=== PATIENT | male | born 1960 | race Asian ===

== ENCOUNTER 2018-11-05 21:40 | Emergency (ER) | payer OTHER ==
[~2018-11-05] VITALS: Ht 190.5 cm; Wt 145.2 kg
[2018-11-05] MEDS ORDERED: AMLODIPINE BESYLATE PO (22:02)
[2018-11-05] MEDS ORDERED: CLONIDINE0.3 MG PO (22:03)
[2018-11-05] MEDS ORDERED: FURO40TA93 PO (22:03)
[2018-11-05] MEDS ORDERED: CARV12.5 PO (22:03)
[2018-11-05] MEDS ORDERED: GRALISE600 MG PO (22:04)
[2018-11-05] MEDS ORDERED: TESTOST CYP200 MG/ML IM (22:05)
[2018-11-05 22:24] LABS: PLATELET COUNT 166 K/uL (142-355)
[2018-11-05 22:34] LABS: POTASSIUM 2.9 mmol/L (3.6-5.2)
[2018-11-06 01:10] VITALS: TEMP 97.7
[2018-11-06 02:35] VITALS: BP 189/108
== END 2018-11-06 02:41 | disposition home or self-care (01) ==
LOC: ED 21:40
PROVIDERS: Internal Medicine
DX: J18.8 Other pneumonia, unspecified organism (principal); E87.6 Hypokalemia; R60.0 Localized edema; G62.89 Other specified polyneuropathies
CPT/HCPCS: 36415; 80053; 81000; 82550; 82553; 84484; 85027; 85379; 93005; 96360; 96365; 96366; 99284; J0696

== ENCOUNTER 2018-12-12 11:14 | Outpatient (CLI) | payer OTHER ==
[~2018-12-12 11:14] MED LIST: AMLODIPINE BESYLATE PO; CARV12.5 PO; CLONIDINE0.3 MG PO; FURO40TA93 PO; GRALISE600 MG PO; TESTOST CYP200 MG/ML IM
[2018-12-12 11:47] LABS: PLATELET COUNT 159 K/uL (142-355)
[2018-12-12 11:59] LABS: POTASSIUM 3.9 mmol/L (3.6-5.2)
== END 2018-12-12 23:35 | disposition home or self-care (01) ==
LOC: LABW 11:14
PROVIDERS: Internal Medicine
DX: I10 Essential (primary) hypertension (principal); R60.9 Edema, unspecified; Z79.899 Other long term (current) drug therapy
CPT/HCPCS: 36415; 80053; 81000; 82330; 82570; 83036; 83735; 84100; 84155; 85027

== ENCOUNTER 2019-07-02 09:04 | Outpatient (CLI) | payer OTHER ==
[2019-07-02 09:42] LABS: PLATELET COUNT 132 K/uL (142-355)
[2019-07-02 10:03] LABS: POTASSIUM 3.6 mmol/L (3.6-5.2)
== END 2019-07-02 20:15 | disposition home or self-care (01) ==
LOC: LABW 09:04
PROVIDERS: Internal Medicine
DX: I10 Essential (primary) hypertension (principal); R80.8 Other proteinuria
CPT/HCPCS: 36415; 80053; 82043; 82570; 84155; 84165; 85027

== ENCOUNTER 2019-08-26 10:17 | Outpatient (CLI) | payer OTHER ==
[2019-08-26 10:38] LABS: PLATELET COUNT 128 K/uL (142-355)
[2019-08-26 10:42] LABS: POTASSIUM 4.2 mmol/L (3.6-5.2)
== END 2019-08-26 19:14 | disposition home or self-care (01) ==
LOC: LABW 10:17
PROVIDERS: Internal Medicine
DX: I10 Essential (primary) hypertension (principal)
CPT/HCPCS: 36415; 80053; 85027

== ENCOUNTER 2019-10-28 10:44 | Outpatient (CLI) | payer OTHER ==
[2019-10-28 11:04] LABS: PLATELET COUNT 184 K/uL (142-355)
[2019-10-28 11:15] LABS: POTASSIUM 3.1 mmol/L (3.6-5.2)
== END 2019-10-28 23:53 | disposition home or self-care (01) ==
LOC: LABW 10:44
PROVIDERS: Internal Medicine
DX: I10 Essential (primary) hypertension (principal)
CPT/HCPCS: 36415; 80053; 81000; 82043; 82570; 83735; 84100; 84155; 85027

== ENCOUNTER 2019-11-05 10:47 | Emergency (ER) | payer OTHER ==
[~2019-11-05] VITALS: Ht 190.5 cm; Wt 161.0 kg
[2019-11-05 11:23] VITALS: BP 192/92; TEMP 98
== END 2019-11-05 11:23 | disposition home or self-care (01) ==
LOC: ED 10:47
DX: M54.5 Low back pain (principal); G89.29 Other chronic pain; Z79.891 Long term (current) use of opiate analgesic
CPT/HCPCS: 99281; 99282

== ENCOUNTER 2020-01-02 08:08 | Outpatient (CLI) | payer OTHER ==
[2020-01-02 09:09] LABS: POTASSIUM 2.7 mmol/L (3.6-5.2)
[2020-01-02 10:08] LABS: PLATELET COUNT 147 K/uL (142-355)
== END 2020-01-02 23:00 | disposition home or self-care (01) ==
LOC: LABW 08:08
PROVIDERS: Nurse Practitioner
DX: I10 Essential (primary) hypertension (principal); R68.82 Decreased libido; R73.9 Hyperglycemia, unspecified
CPT/HCPCS: 36415; 80053; 81000; 82043; 82570; 83036; 83735; 84100; 84155; 84402; 84403; 84443; 85027

== ENCOUNTER 2020-03-19 10:07 | Outpatient (CLI) | payer OTHER ==
[2020-03-19 10:41] LABS: PLATELET COUNT 141 K/uL (142-355)
[2020-03-19 11:46] LABS: POTASSIUM 3.2 mmol/L (3.6-5.2)
== END 2020-03-19 23:56 | disposition home or self-care (01) ==
LOC: LABW 10:07
PROVIDERS: Internal Medicine
DX: I10 Essential (primary) hypertension (principal); R73.9 Hyperglycemia, unspecified
CPT/HCPCS: 36415; 80053; 81000; 82043; 82570; 83036; 83735; 84100; 84155; 85027

== ENCOUNTER 2020-04-17 15:13 | Emergency (ER) | payer OTHER ==
[~2020-04-17] VITALS: Ht 190.5 cm; Wt 149.7 kg
[2020-04-17 16:35] VITALS: BP 156/82; TEMP 96.9
== END 2020-04-17 16:35 | disposition home or self-care (01) ==
LOC: ED 15:13
DX: L23.9 Allergic contact dermatitis, unspecified cause (principal)
CPT/HCPCS: 96372; 99283; J1020; J1200

== ENCOUNTER 2020-05-04 10:14 | Emergency (ER) | payer OTHER ==
[~2020-05-04] VITALS: Ht 190.5 cm; Wt 149.7 kg
[2020-05-04 10:27] VITALS: TEMP 98.3
[2020-05-04 11:37] LABS: PLATELET COUNT 147 K/uL (142-355)
[2020-05-04 11:45] LABS: POTASSIUM 3.4 mmol/L (3.6-5.2)
[2020-05-04 12:39] VITALS: BP 133/88
== END 2020-05-04 12:40 | disposition home or self-care (01) ==
LOC: ED 10:14
PROVIDERS: Family Medicine
DX: M06.8A Other specified rheumatoid arthritis, other specified site (principal); E87.6 Hypokalemia
CPT/HCPCS: 80053; 85027; 96372; 99283; J2930

== ENCOUNTER 2020-05-04 12:49 | Outpatient (CLI) | payer OTHER ==
[2020-05-04 13:06] LABS: PLATELET COUNT 152 K/uL (142-355)
[2020-05-04 13:18] LABS: POTASSIUM 3.6 mmol/L (3.6-5.2)
== END 2020-05-04 22:00 | disposition home or self-care (01) ==
LOC: LABW 12:49
PROVIDERS: ATTEND Internal Medicine
DX: I10 Essential (primary) hypertension (principal); R73.9 Hyperglycemia, unspecified
CPT/HCPCS: 36415; 80053; 81000; 82043; 82570; 83036; 83735; 84100; 84155; 85027